=== PATIENT | male | born 1945 | race Hispanic/Latino ===

== ENCOUNTER 2024-07-18 13:03 | Emergency (ER) | payer MEDICARE ==
[2024-07-18 15:34] LABS: Hematocrit 51.1 % (42.0-52.0); Hemoglobin 16.8 g/dL (14.0-18.0); Mean Corpuscular HGB CONC 32.9 g/dL (32.0-36.0); Mean Corpuscular Hemoglobin 29.7 pg (27.0-31.0); Mean Corpuscular Volume 90.4 fL (78.0-98.0); Mean Platelet Volume 9.4 fL (7.4-10.4); Platelet Count 129 10x3/uL (130-400); RBC Distribution Width 14.6 % (11.5-14.5); Red Blood Cell (RBC) Count 5.65 mill/uL (4.70-6.10)
[2024-07-18 15:52] LABS: PTT 31.3 sec (22.9-36.1); Prothrombin Time 13.6 sec (12.0-14.7)
[2024-07-18 15:58] LABS: Band 3 % (5-11); Lymphocytes 89 % (21-51); Monocytes 2 % (0-10); Neutrophil 1 % (42-75); Platelet Adequacy Comment Platelets Decreased; Reactive Lymphocytes 5 % (0-10); Smudge Cells 19.2 %
[2024-07-18 16:00] LABS: ALT (SGPT) 17 U/L (8-55); AST (SGOT) 20 U/L (5-34); Albumin 3.5 g/dL (3.4-4.8); Alkaline Phosphatase 148 U/L (40-110); Anion Gap 10 mmol/L (10-20); BUN (Urea Nitrogen) 22 mg/dL (8.4-25.7); Bilirubin, Total 1.9 mg/dL (0.2-1.2); Calc. Creatinine Clearance 0 mL/min (70-130); Calcium 9.3 mg/dL (7.8-10.44); Carbon Dioxide 24 mmol/L (23-31); Chloride 103 mmol/L (98-107); Estimated GFR 47; Globulin 5.3 g/dL (2.4-3.5); Glucose 105 mg/dL (83-110); Potassium 4.2 mmol/L (3.5-5.1); Protein, Total 8.8 g/dL (5.8-8.1); Sodium 133 mmol/L (136-145)
[2024-07-18] MEDS ORDERED: Acetaminophen 500 MG TAB ONE (16:07)
== END 2024-07-18 16:16 | disposition home or self-care (01) ==
LOC: ERS 13:03
DX: S32.039A Unspecified fracture of third lumbar vertebra, initial encounter for closed fracture (principal); I71.40 Abdominal aortic aneurysm, without rupture, unspecified; Z55.6 Problems related to health literacy; F17.210 Nicotine dependence, cigarettes, uncomplicated; X58.XXXA Exposure to other specified factors, initial encounter
CPT/HCPCS: 36415; 72128; 72131; 80053; 85025; 85610; 85730

== ENCOUNTER 2024-08-17 09:16 | Emergency (ER) | payer MEDICARE ==
[2024-08-17] MEDS ORDERED: Acetaminophen 500 MG TAB ONE (09:51)
[2024-08-17] MEDS ORDERED: Ketorolac Tromethamine 30 MG (1 mL) VIAL ONE (09:51)
[2024-08-17] MEDS ORDERED: Cyclobenzaprine 10 MG TAB ONE (10:09)
[2024-08-17] MEDS ORDERED: Lidocaine 4% Patch ONE (10:12)
[2024-08-17] MEDS ORDERED: Morphine 2 MG/ML VIAL ONE (13:41)
== END 2024-08-17 14:51 | disposition home or self-care (01) ==
LOC: ERS 09:16
DX: M54.50 Low back pain, unspecified (principal); F17.210 Nicotine dependence, cigarettes, uncomplicated
CPT/HCPCS: 96372; 99283; J1885; J2272

== ENCOUNTER 2024-09-08 09:46 | Inpatient (IN) | payer MEDICARE ==
[~2024-09-08 09:46] MED LIST: Magnevist 469MG/ML 20 ML VIAL ONE
[2024-09-08 10:42] LABS: Hematocrit 46.7 % (42.0-52.0); Hemoglobin 15.3 g/dL (14.0-18.0); Mean Corpuscular HGB CONC 32.8 g/dL (32.0-36.0); Mean Corpuscular Hemoglobin 29.2 pg (27.0-31.0); Mean Corpuscular Volume 89.1 fL (78.0-98.0); Platelet Count 129 10x3/uL (130-400); RBC Distribution Width 14.3 % (11.5-14.5); Red Blood Cell (RBC) Count 5.24 mill/uL (4.70-6.10)
[2024-09-08 10:55] LABS: Bacteria/HPF None Seen HPF (None Seen); Bilirubin Negative (Negative); Blood, Urine Negative (Negative); CAUTI Indications for Culture Pelvic or flank pain; Clarity Clear (Clear); Glucose, Urine (Dipstick) Normal (Negative); Ketone, Urine Negative (Negative); Leukocyte Negative Leu/uL (Negative); Nitrite Negative (Negative); Protein, Urine (Dipstick) 20 mg/dL (Neg-Trace); RBC/HPF 0-3 HPF (0-3); Specific Gravity, Urine 1.018 (1.002-1.036); Squamous Epithelial 0-3 HPF (0-3); Urobilinogen Normal mg/dL (Less than 2); WBC/HPF 0-3 HPF (0-3); pH, Urine 5.5 (5.0-9.0)
[2024-09-08 10:58] LABS: Cellular Cast 0-3 LPF (None Seen)
[2024-09-08 11:12] LABS: Urine Culture Reflex No No
[2024-09-08 11:14] LABS: Band 1 % (5-11); Lymphocytes 65 % (21-51); Monocytes 4 % (0-10); Neutrophil 18 % (42-75); Ovalocytes MODERATE= 6-15 cells HPF (0-1); Platelet Adequacy Comment Platelets Normal; Polychromasia SLIGHT = 2-3 cells HPF (0-2); Reactive Lymphocytes 12 % (0-10)
[2024-09-08 11:25] LABS: ALT (SGPT) 15 U/L (8-55); AST (SGOT) 19 U/L (5-34); Albumin 3.1 g/dL (3.4-4.8); Alkaline Phosphatase 119 U/L (40-110); Anion Gap 12 mmol/L (10-20); BUN (Urea Nitrogen) 32 mg/dL (8.4-25.7); Bilirubin, Total 2.7 mg/dL (0.2-1.2); Calc. Creatinine Clearance 0 mL/min (70-130); Calcium 8.8 mg/dL (7.8-10.44); Carbon Dioxide 22 mmol/L (23-31); Chloride 101 mmol/L (98-107); Estimated GFR 36; Globulin 4.9 g/dL (2.4-3.5); Glucose 114 mg/dL (83-110); Potassium 3.9 mmol/L (3.5-5.1); Sodium 131 mmol/L (136-145)
[2024-09-08] MEDS ORDERED: Ondansetron PF 4 MG/2 ML Vial ONE ×2 (12:35→12:39)
[2024-09-08] MEDS ORDERED: Morphine 2 MG/ML VIAL ONE (12:35)
[2024-09-08] MEDS ORDERED: fentaNYL PF 100 MCG/2 ML SYRINGE ONE (12:39)
[2024-09-08] MEDS ORDERED: Dexamethasone 4 mg/ml Vial ONE (12:39)
[2024-09-08] MEDS ORDERED: Lidocaine 1% PF 5 ML VIAL ONE (12:39)
[2024-09-08] MEDS ORDERED: Rocuronium Bromide 10 MG/ML (10ML VIAL) ONE ×2 (12:39→15:55)
[2024-09-08] MEDS ORDERED: PROPOFOL 40 ML ONE (12:40)
[2024-09-08] MEDS ORDERED: SUGAMMADEX SODIUM 200 MG/2 ML VIAL ONE (12:40)
[2024-09-08] MEDS ORDERED: Thrombin 5000 UNITS/5 ML VIAL ONE (13:06)
[2024-09-08] MEDS ORDERED: Vancomycin 1 GM VIAL ONE (13:06)
[2024-09-08] MEDS ORDERED: CEFAZOLIN 2 GM VIAL ONE (13:21)
[2024-09-08] MEDS ORDERED: Amiodarone 150 MG/3 ML VIAL ONE (14:23)
[2024-09-08] MEDS ORDERED: Phenylephrine 40 MG/NS 250 ML 250 ML ONE (15:55)
[2024-09-08] MEDS ORDERED: Esmolol 100 MG/10 ML VIAL ONE (15:55)
[2024-09-08] MEDS ORDERED: Dexmedetomidine 200 MCG/2 ML VIAL ONE (17:21)
[2024-09-08] MEDS ORDERED: diphenhydrAMINE 25 MG CAP PO PRN (17:43)
[2024-09-08] MEDS ORDERED: Ondansetron PF 4 MG/2 ML Vial IVP PRN (17:43)
[2024-09-08] MEDS ORDERED: fentaNYL 50 mcg/mL 1 mL Vial SLOW IVP PRN (17:43)
[2024-09-08] MEDS ORDERED: fentaNYL 50 mcg/mL 1 mL Vial ONE (18:15)
[2024-09-08 18:59] VITALS: BMI 23.0
[2024-09-08] MEDS: CEFAZOLIN 2 GM in Sodium Chloride 0.9% 100 ML IVPB SCH (21:14)
[2024-09-08] MEDS: Sodium Chloride 0.9% 1,000 ML IV SCH (21:24)
[2024-09-08] MEDS: HYDROcodone/Acetaminophen 10/325 mg Tablet PO PRN (22:11)
[2024-09-08] MEDS: tiZANidine HCl 4 MG TAB PO PRN (22:11)
[2024-09-09] MEDS: Diazepam 5 MG TAB PO PRN (02:56)
[2024-09-09 06:03] LABS: Hematocrit 35.7 % (42.0-52.0); Hemoglobin 11.6 g/dL (14.0-18.0); Mean Corpuscular HGB CONC 32.5 g/dL (32.0-36.0); Mean Corpuscular Hemoglobin 29.3 pg (27.0-31.0); Mean Corpuscular Volume 90.2 fL (78.0-98.0); Mean Platelet Volume 10.2 fL (7.4-10.4); Platelet Count 102 10x3/uL (130-400); RBC Distribution Width 14.4 % (11.5-14.5); Red Blood Cell (RBC) Count 3.96 mill/uL (4.70-6.10)
[2024-09-09 06:22] LABS: Anion Gap 10 mmol/L (10-20); BUN (Urea Nitrogen) 35 mg/dL (8.4-25.7); Calc. Creatinine Clearance 39 mL/min (70-130); Calcium 7.9 mg/dL (7.8-10.44); Carbon Dioxide 20 mmol/L (23-31); Chloride 106 mmol/L (98-107); Estimated GFR 42; Glucose 116 mg/dL (83-110); Potassium 4.6 mmol/L (3.5-5.1); Sodium 131 mmol/L (136-145)
[2024-09-09 06:54] LABS: Anisocytosis SLIGHT = 6-15 cells HPF (0-5); Band 3 % (5-11); Lymphocytes 82 % (21-51); Macrocytosis SLIGHT = 6-15 cells HPF (0-5); Monocytes 5 % (0-10); Neutrophil 8 % (42-75); Platelet Adequacy Comment Platelets Decreased; Polychromasia SLIGHT = 2-3 cells HPF (0-2); Reactive Lymphocytes 2 % (0-10)
[2024-09-09] MEDS: Pregabalin 50 MG CAP PO SCH (10:24)
[2024-09-09] MEDS: Cyclobenzaprine 10 MG TAB PO SCH (10:24)
[2024-09-09 16:33] VITALS: BMI 23.0
[2024-09-10] MEDS: CEFAZOLIN 2 GM VIAL ONE (07:29)
[2024-09-11] MEDS: Sodium Chloride 0.9% 500 ML IV SCH (00:38)
[2024-09-11] MEDS: Acetaminophen 500 MG TAB PO SCH (00:38)
[2024-09-11 01:03] LABS: Hemoglobin 12.4 g/dL (14.0-18.0); Mean Corpuscular HGB CONC 32.6 g/dL (32.0-36.0); Mean Corpuscular Hemoglobin 29.4 pg (27.0-31.0); Mean Platelet Volume 10.3 fL (7.4-10.4); Platelet Count 106 10x3/uL (130-400); RBC Distribution Width 14.4 % (11.5-14.5); Red Blood Cell (RBC) Count 4.22 mill/uL (4.70-6.10)
[2024-09-11 01:05] LABS: Lactic Acid 1.34 mmol/L (0.5-2.2)
[2024-09-11 01:09] LABS: Bacteria/HPF None Seen HPF (None Seen); Bilirubin Negative (Negative); Blood, Urine 3+ (Negative); CAUTI Indications for Culture Fever or rigors; Clarity Clear (Clear); Glucose, Urine (Dipstick) Normal (Negative); Ketone, Urine Trace mg/dL (Negative); Leukocyte Negative Leu/uL (Negative); Nitrite Negative (Negative); Protein, Urine (Dipstick) 50 mg/dL (Neg-Trace); RBC/HPF Greater than 50 HPF (0-3); Squamous Epithelial 0-3 HPF (0-3); Urobilinogen Normal mg/dL (Less than 2); WBC/HPF 21-50 HPF (0-3); pH, Urine 5.5 (5.0-9.0)
[2024-09-11 01:11] LABS: ALT (SGPT) Less than 5 U/L (8-55); AST (SGOT) 23 U/L (5-34); Albumin 2.4 g/dL (3.4-4.8); Alkaline Phosphatase 91 U/L (40-110); Anion Gap 14 mmol/L (10-20); BUN (Urea Nitrogen) 26 mg/dL (8.4-25.7); Bilirubin, Total 1.5 mg/dL (0.2-1.2); Calc. Creatinine Clearance 37 mL/min (70-130); Calcium 8.1 mg/dL (7.8-10.44); Carbon Dioxide 19 mmol/L (23-31); Chloride 103 mmol/L (98-107); Estimated GFR 39; Globulin 4.1 g/dL (2.4-3.5); Glucose 106 mg/dL (83-110); Potassium 4.4 mmol/L (3.5-5.1); Protein, Total 6.5 g/dL (5.8-8.1); Sodium 132 mmol/L (136-145)
[2024-09-11 01:13] LABS: Urine Culture Reflex Yes Yes
[2024-09-11 01:36] LABS: Anisocytosis SLIGHT = 6-15 cells HPF (0-5); Band 3 % (5-11); Lymphocytes 82 % (21-51); Macrocytosis SLIGHT = 6-15 cells HPF (0-5); Monocytes 5 % (0-10); Neutrophil 10 % (42-75); Platelet Adequacy Comment Platelets Decreased
[2024-09-11] MEDS ORDERED: Cefepime 1 GM in Sodium Chloride 0.9% 100 ML IVPB SCH (02:00)
[2024-09-11] MEDS: Cefepime 1 GM in Sodium Chloride 0.9% 100 ML IVPB SCH (03:37)
[2024-09-11] MEDS: Albumin 25% 25 GM (100 mL) BOT IVPB SCH (03:43)
[2024-09-11] MEDS: Vancomycin (BATCH) 1.5 GM in Premix 1 BAG IVPB SCH (04:11)
[2024-09-11 06:06] LABS: Hematocrit 33.1 % (42.0-52.0); Hemoglobin 10.9 g/dL (14.0-18.0); Mean Corpuscular HGB CONC 32.9 g/dL (32.0-36.0); Mean Corpuscular Hemoglobin 29.5 pg (27.0-31.0); Mean Corpuscular Volume 89.5 fL (78.0-98.0); Mean Platelet Volume 10.5 fL (7.4-10.4); Platelet Count 98 10x3/uL (130-400); RBC Distribution Width 14.1 % (11.5-14.5)
[2024-09-11 06:14] LABS: Sodium 134 mmol/L (136-145)
[2024-09-11 06:15] LABS: Anion Gap 11 mmol/L (10-20); BUN (Urea Nitrogen) 28 mg/dL (8.4-25.7); Calc. Creatinine Clearance 39 mL/min (70-130); Calcium 7.8 mg/dL (7.8-10.44); Carbon Dioxide 21 mmol/L (23-31); Chloride 106 mmol/L (98-107); Estimated GFR 42; Glucose 98 mg/dL (83-110)
[2024-09-11 06:30] LABS: Anisocytosis SLIGHT = 6-15 cells HPF (0-5); Band 8 % (5-11); Lymphocytes 84 % (21-51); Macrocytosis SLIGHT = 6-15 cells HPF (0-5); Monocytes 2 % (0-10); Neutrophil 6 % (42-75); Platelet Adequacy Comment Platelets Decreased; Polychromasia SLIGHT = 2-3 cells HPF (0-2); Smudge Cells 23.8 %
[2024-09-11] MEDS ORDERED: Ipratropium/Albuterol 3 ML NEB EZPAP PRN (07:10)
[2024-09-11] MEDS: Enoxaparin 40 MG (0.4 mL) SYRINGE SC SCH (10:14)
[2024-09-11] MEDS: Vancomycin HCl 500 MG in Sodium Chloride 0.9% 100 ML IVPB SCH (11:56)
[2024-09-11 17:23] LABS: Iron 18 ug/dL (65-175); Iron Binding Capacity, Total 89 mcg/dL (261-462)
[2024-09-11 18:04] LABS: Reflex for Review?? YES
[2024-09-11] MEDS: Acetaminophen 325 MG TAB PO PRN (20:39)
[2024-09-12 05:55] LABS: Anion Gap 12 mmol/L (10-20); BUN (Urea Nitrogen) 22 mg/dL (8.4-25.7); Calc. Creatinine Clearance 44 mL/min (70-130); Calcium 8.3 mg/dL (7.8-10.44); Carbon Dioxide 22 mmol/L (23-31); Chloride 106 mmol/L (98-107); Estimated GFR 49; Glucose 94 mg/dL (83-110); Potassium 3.9 mmol/L (3.5-5.1); Sodium 136 mmol/L (136-145)
[2024-09-12 06:01] LABS: Vancomycin, Random 21.1 ug/mL (See Comment)
[2024-09-12 06:03] LABS: #Basophils 0.03 10x3/uL (0.0-0.2); %Basophils 0.5 % (0.0-1.0); %Eosinophils 0.9 % (0.0-10.0); %Lymphocytes 81.3 % (21.0-51.0); %Monocytes 3.5 % (0.0-10.0); %Neutrophils 13.6 % (42.0-75.0); Hemoglobin 10.5 g/dL (14.0-18.0); Mean Corpuscular HGB CONC 32.8 g/dL (32.0-36.0); Mean Corpuscular Hemoglobin 29.5 pg (27.0-31.0); Mean Corpuscular Volume 89.9 fL (78.0-98.0); Mean Platelet Volume 9.7 fL (7.4-10.4); Platelet Count 114 10x3/uL (130-400); RBC Distribution Width 14.1 % (11.5-14.5); Red Blood Cell (RBC) Count 3.56 mill/uL (4.70-6.10)
[2024-09-12] MEDS: Enoxaparin 40 MG (0.4 mL) SYRINGE SC SCH (09:38)
[2024-09-13] MEDS: Methocarbamol 500 MG TAB PO PRN (11:18)
[2024-09-13] MEDS: Ferrous Sulfate 325 MG TAB PO SCH (14:57)
[2024-09-13] MEDS: Sodium Chloride 0.9% 250 ML 250 ML IV SCH (15:01)
[2024-09-14 05:52] LABS: Vancomycin, Random 20.2 ug/mL (See Comment)
[2024-09-14 05:55] LABS: Hematocrit 36.4 % (42.0-52.0); Hemoglobin 12.1 g/dL (14.0-18.0); Mean Corpuscular HGB CONC 33.2 g/dL (32.0-36.0); Mean Corpuscular Hemoglobin 29.6 pg (27.0-31.0); Mean Platelet Volume 9.7 fL (7.4-10.4); Platelet Count 119 10x3/uL (130-400); RBC Distribution Width 14.4 % (11.5-14.5); Red Blood Cell (RBC) Count 4.09 mill/uL (4.70-6.10)
[2024-09-14 06:45] LABS: Eosinophils 1 % (0-10); Lymphocytes 79 % (21-51); Monocytes 1 % (0-10); Neutrophil 13 % (42-75); Platelet Adequacy Comment Platelets Decreased; RBC Morphology Within Normal Limits; Reactive Lymphocytes 5 % (0-10)
[2024-09-14] MEDS: Pregabalin 25 MG CAP PO SCH (09:10)
[2024-09-14] MEDS: Ferrous Sulfate 325 MG TAB PO SCH (09:11)
[2024-09-14 14:26] LABS: Bacteria/HPF None Seen HPF (None Seen); Bilirubin Negative (Negative); Blood, Urine 1+ (Negative); CAUTI Indications for Culture Fever or rigors; Clarity Clear (Clear); Glucose, Urine (Dipstick) Normal (Negative); Ketone, Urine Negative (Negative); Leukocyte Negative Leu/uL (Negative); Nitrite Negative (Negative); Protein, Urine (Dipstick) 20 mg/dL (Neg-Trace); RBC/HPF 0-3 HPF (0-3); Specific Gravity, Urine 1.012 (1.002-1.036); Squamous Epithelial 0-3 HPF (0-3); Urobilinogen Normal mg/dL (Less than 2); WBC/HPF 0-3 HPF (0-3); pH, Urine 5.5 (5.0-9.0)
[2024-09-14 14:27] LABS: Urine Culture Reflex No No
[2024-09-14] MEDS: HYDROcodone/Acetaminophen 5/325 mg Tablet PO PRN (23:45)
[2024-09-15 05:36] LABS: Hematocrit 36.1 % (42.0-52.0); Mean Corpuscular HGB CONC 33.2 g/dL (32.0-36.0); Mean Corpuscular Hemoglobin 29.8 pg (27.0-31.0); Mean Corpuscular Volume 89.6 fL (78.0-98.0); Mean Platelet Volume 10.1 fL (7.4-10.4); Platelet Count 122 10x3/uL (130-400); RBC Distribution Width 14.5 % (11.5-14.5); Red Blood Cell (RBC) Count 4.03 mill/uL (4.70-6.10)
[2024-09-15 06:00] LABS: Anisocytosis SLIGHT = 6-15 cells HPF (0-5); Eosinophils 2 % (0-10); Lymphocytes 86 % (21-51); Neutrophil 12 % (42-75); Platelet Adequacy Comment Platelets Normal; Polychromasia SLIGHT = 2-3 cells HPF (0-2)
[2024-09-15] MEDS: Milk Of Magnesia 30 ML UDCUP PO PRN (08:51)
[2024-09-16] MEDS: Cefepime 1 GM VIAL ONE (01:55)
[2024-09-16 05:36] LABS: Hemoglobin 11.5 g/dL (14.0-18.0); Mean Corpuscular HGB CONC 32.9 g/dL (32.0-36.0); Mean Corpuscular Hemoglobin 29.3 pg (27.0-31.0); Mean Corpuscular Volume 89.3 fL (78.0-98.0); Mean Platelet Volume 10.1 fL (7.4-10.4); Platelet Count 118 10x3/uL (130-400); RBC Distribution Width 14.6 % (11.5-14.5); Red Blood Cell (RBC) Count 3.92 mill/uL (4.70-6.10)
[2024-09-16 06:05] LABS: Hypochromia SLIGHT = 6-15 cells HPF (0-5); Lymphocytes 94 % (21-51); Monocytes 2 % (0-10); Neutrophil 4 % (42-75); Platelet Adequacy Comment Platelets Decreased; Polychromasia SLIGHT = 2-3 cells HPF (0-2)
[2024-09-16 12:41] VITALS: BP 128/55; TEMP 97.8
== END 2024-09-16 16:45 | DRG 478 ==
LOC: ERS 09:46 → SDC 13:01 → SURG B 18:46
PROVIDERS: ADMIT Surgery; ATTEND Surgery
PROC: 0QB00ZX Excision of Lumbar Vertebra, Open Approach, Diagnostic (ICD-10-PCS; principal; 2024-09-08)
PROC: 00NY0ZZ Release Lumbar Spinal Cord, Open Approach (ICD-10-PCS; 2024-09-08)
PROC: 0QS004Z Reposition Lumbar Vertebra with Internal Fixation Device, Open Approach (ICD-10-PCS; 2024-09-08)
DX: M84.48XA Pathological fracture, other site, initial encounter for fracture (principal); C41.2 Malignant neoplasm of vertebral column; G83.4 Cauda equina syndrome; E87.1 Hypo-osmolality and hyponatremia; F17.210 Nicotine dependence, cigarettes, uncomplicated
CPT/HCPCS: 36415; 36416; 71045; 72146; 72158; 80048; 80053; 80202; 81001; 82565; 82668; 82728; 83540; 83550; 83605; 84153; 85025; 85060; 86141; 86850; 86900; 86901; 87040; 87086; 87428; 88184; 88185; 88189; 88307; 88311; 88313; 88341; 88342; 93005; 93010; 93970; 94760; 96374; 96375; 97139; A4314; A6258; C1713; C1889; J0282; J0692; J1100; J1650; J2272; J2405; J2704; J3010; J3370; J7030; J7050; P9047